=== PATIENT | female | born 1990 ===

== ENCOUNTER 2017-03-12 12:30 | Emergency (ER) | payer SELFPAY ==
[2017-03-12 12:31] VITALS: BMI 18.1
[2017-03-12 13:25] VITALS: O2SAT 100
[2017-03-12 14:09] LABS: SQUAMOUS EPITHIAL 30 /hpf (0-5); URINE BACTERIA RARE (<OCC); URINE BILIRUBIN NEGATIVE (NEGATIVE); URINE BLOOD NEGATIVE (NEGATIVE); URINE CLARITY Hazy (Clear); URINE COLOR Yellow (YELLOW); URINE GLUCOSE (UA) NORMAL (Normal); URINE LEUKOCYTE ESTERASE 2+ Leu/uL (Negative); URINE NITRATE NEGATIVE (NEGATIVE); URINE PROTEIN NEGATIVE (NEGATIVE); URINE UROBILINOGEN NORMAL mg/dL (0.2-1.0)
--- NOTE | 2017-03-12 15:32 | C.PDOC ---
Time Seen by Provider: 03/12/17 14:19 Chief Complaint (Nursing): Female Genitourinary Past Medical History Vital Signs: Last Vital Signs Temp 98.5 F 03/12/17 13:29 Pulse 80 03/12/17 13:29 Resp 16 03/12/17 13:29 BP 123/77 03/12/17 13:29 Pulse Ox 100 03/12/17 13:29 Family History: States: Unknown Family Hx - Social History Hx Alcohol Use: No Hx Substance Use: No - Immunization History Hx Tetanus Toxoid Vaccination: No Hx Influenza Vaccination: No Hx Pneumococcal Vaccination: No ED Course And Treatment O2 Sat by Pulse Oximetry: 100 Disposition Counseled Patient/Family Regarding: Diagnosis, Need For Followup - Disposition Disposition: HOME/ ROUTINE Disposition Time: 15:29 Condition: STABLE Additional Instructions: Follow up with your SKILLED NURSING FACILITY COUNSELOR. Instructions: Vaginitis (ED) Forms: [facility] ([place]ay[place] Islander), Gen Discharge Inst [place] Islander - POA Present On Arrival: None - Clinical Impression Clinical Impression: Vaginitis
--- NOTE | 2017-03-12 15:33 | C.PDOC ---
History Of Present Illness Cristy Sykes is a 26 year old female, with no past medical history, who presents to the emergency department complaining of lower abdominal pain associated with a vaginal discharge and some dysuria onset for x2 months. She reports itchiness and discomfort after menstrual period. Patient states she saw her OBGYN and was told have an US done and a pap test but she never followed through. Patient has no previous history of STDs and states she has 1 partner, no safe intercourse She denies any fever, or chills. No further medical complaints. PMD: None provided. Time Seen by Provider: 03/12/17 14:19 Chief Complaint (Nursing): Female Genitourinary History Per: Patient History/Exam Limitations: no limitations Onset/Duration Of Symptoms: Days (months) Current Symptoms Are (Timing): Still Present Quality Of Discomfort: "Pain" Associated Symptoms: Urinary Symptoms (some dysuria). denies: Fever Past Medical History Reviewed: Historical Data, Nursing Documentation, Vital Signs Vital Signs: Last Vital Signs Temp 97.6 F 03/12/17 15:49 Pulse 81 03/12/17 15:49 Resp 18 03/12/17 15:49 BP 113/73 03/12/17 15:49 Pulse Ox 100 03/12/17 16:20 - Medical History PMH: No Chronic Diseases Surgical History: No Surg Hx Family History: States: Unknown Family Hx - Social History Hx Alcohol Use: No Hx Substance Use: No - Immunization History Hx Tetanus Toxoid Vaccination: No Hx Influenza Vaccination: No Hx Pneumococcal Vaccination: No Review Of Systems Constitutional: Negative for: Fever, Chills Gastrointestinal: Positive for: Abdominal Pain (lower) Genitourinary: Positive for: Dysuria, Vaginal Discharge Physical Exam - Physical Exam Skin: Normal Color, Warm, Dry Head: Atraumatic Eye(s): bilateral: Normal Inspection Neck: Normal, Normal ROM, Supple Gastrointestinal/Abdominal: Normal Exam, Soft, No Tenderness Pelvic: Normal External Exam, Vaginal Discharge (white non clumpy), No Cervical Motion Tenderness, No Mass, No Other (pelvis tenderness) Extremity: Normal ROM, No Deformity Neurological/Psych: Oriented x3 ED Course And Treatment O2 Sat by Pulse Oximetry: 100 (RA) Pulse Ox Interpretation: Normal Medical Decision Making Medical Decision Making: Initial Impression: Vaginitis Initial Plan: --Flagyl 2,000 mg PO --Urinalysis --reevaluation Disposition - Disposition Additional Instructions: Follow up with your PHYSICAL INSTRUCTOR. Instructions: Vaginitis (ED) Forms: Gen Discharge Inst Mozambican, [facility] (Mozambican) - Clinical Impression Clinical Impression: Vaginitis - Scribe Statement Nas Jose Provider Attestation: All medical record entries made by the Scribe were at my direction and personally dictated by me. I have reviewed the chart and agree that the record accurately reflects my personal performance of the history, physical exam, medical decision making, and the department course for this patient. I have also personally directed, reviewed, and agree with the discharge instructions and disposition.
[2017-03-12 15:50] VITALS: BP 113/73; PULSE 81; RESP 18; TEMP 97.6
== END 2017-03-12 15:49 | disposition home or self-care (01) ==
LOC: C.ER 12:30
DX: N76.0 Acute vaginitis (principal)

== ENCOUNTER 2017-04-05 08:58 | Emergency (ER) | payer OTHER ==
[2017-04-05 09:08] VITALS: BMI 19.0
[2017-04-05 09:09] VITALS: TEMP 98.8
[2017-04-05 10:16] LABS: BASO % 0.3 % (0.0-2.0); EOS # 0.1 K/uL (0.0-0.7); EOS % 0.9 % (0.0-4.0); HEMOGLOBIN 14.4 g/dL (11.0-16.0); LYMPH # 1.9 K/uL (1.0-4.3); LYMPH % 25.5 % (20.0-40.0); MEAN CELL VOLUME 90.2 fL (81.0-99.0); MEAN CORPUSCULAR HEMOGLOBIN 31.9 pg (27.0-31.0); MEAN CORPUSCULAR HGB CONC 35.4 g/dL (33.0-37.0); MEAN PLATELET VOLUME 8.3 fL (7.2-11.7); MONO # 0.7 K/uL (0.0-0.8); MONO % 9.7 % (0.0-10.0); NEUT # 4.6 K/uL (1.8-7.0); NEUT % 63.6 % (50.0-75.0); RBC 4.51 Mil/uL (3.80-5.20); RED CELL DISTRIBUTION WIDTH 12.4 % (11.5-14.5); WHITE BLOOD COUNT 7.3 K/uL (4.8-10.8)
[2017-04-05 10:22] LABS: HCG,QUALITATIVE URINE POSITIVE (NEGATIVE)
[2017-04-05 10:28] LABS: ALB/GLOB RATIO 1.3 (1.0-2.1); ALBUMIN 4.2 g/dL (3.5-5.0); ALT/SGPT 15 U/L (9-52); AST/SGOT 18 U/L (14-36); BLOOD UREA NITROGEN 7 mg/dL (7-17); CALCIUM 9.4 mg/dl (8.6-10.4); GFR AFRICAN-AMERICAN > 60; GFR NON-AFRICAN AMERICAN > 60; SQUAMOUS EPITHIAL 4 /hpf (0-5); URINE BACTERIA RARE (<OCC); URINE BILIRUBIN NEGATIVE (NEGATIVE); URINE BLOOD NEGATIVE (NEGATIVE); URINE CLARITY Hazy (Clear); URINE COLOR Yellow (YELLOW); URINE GLUCOSE (UA) NORMAL (Normal); URINE LEUKOCYTE ESTERASE 2+ Leu/uL (Negative); URINE NITRATE NEGATIVE (NEGATIVE); URINE PROTEIN NEGATIVE (NEGATIVE); URINE UROBILINOGEN NORMAL mg/dL (0.2-1.0)
--- NOTE | 2017-04-05 11:09 | C.PDOC ---
History Of Present Illness 26 year old female, 5 weeks , presents to ED for evaluation of pelvic pain and yellow vaginal discharge for the past 7 days. Contrary to triage, pt does not complain of vaginal spotting/bleeding. Otherwise, denies n/v/d, constipation, back pain, urinary symptoms, or fever. Chief Complaint (Nursing): Abdominal Pain History Per: Patient History/Exam Limitations: no limitations Onset/Duration Of Symptoms: Days Current Symptoms Are (Timing): Still Present Location Of Pain/Discomfort: Suprapubic Radiation Of Pain To:: None Quality Of Discomfort: "Pain" Associated Symptoms: denies: Loss Of Appetite, Back Pain, Chest Pain, Constipation, Urinary Symptoms Exacerbating Factors: None Alleviating Factors: None Recent travel outside of the [place]: No Additional History Per: Patient Abnormal Vaginal Bleeding: No Past Medical History Reviewed: Historical Data, Nursing Documentation, Vital Signs Vital Signs: Last Vital Signs Temp 98.8 F 04/05/17 09:08 Pulse 92 H 04/05/17 15:07 Resp 16 04/05/17 15:07 BP 108/72 04/05/17 15:07 Pulse Ox 100 04/05/17 15:07 Family History: States: Unknown Family Hx - Social History Hx Alcohol Use: No Hx Substance Use: No - Immunization History Hx Tetanus Toxoid Vaccination: No Hx Influenza Vaccination: No Hx Pneumococcal Vaccination: No Review Of Systems Except As Marked, All Systems Reviewed And Found Negative. Constitutional: Negative for: Fever, Chills Gastrointestinal: Negative for: Nausea, Vomiting, Diarrhea, Constipation Genitourinary: Positive for: Vaginal Discharge, Pelvic Pain. Negative for: Dysuria, Frequency, Hematuria, Vaginal Bleeding Musculoskeletal: Negative for: Back Pain Physical Exam - Physical Exam Appears: Non-toxic, No Acute Distress Skin: Normal Color, Warm, Dry Head: Atraumatic, Normacephalic Eye(s): bilateral: Normal Inspection, EOMI Nose: Normal Oral Mucosa: Moist, No Drooling Neck: Normal ROM, Supple Cardiovascular: Rhythm Regular, No Murmur Respiratory: Normal Breath Sounds, No Rales, No Rhonchi, No Wheezing Gastrointestinal/Abdominal: Soft, No Tenderness, No Guarding, No Rebound Back: No CVA Tenderness Pelvic: No Vaginal Bleeding, Vaginal Discharge (yellow cottage cheese) Extremity: Bilateral: Atraumatic, Normal ROM Neurological/Psych: Oriented x3, Normal Speech ED Course And Treatment - Laboratory Results Result Diagrams: 04/05/17 10:11 04/05/17 10:11 O2 Sat by Pulse Oximetry: 99 (RA) Pulse Ox Interpretation: Normal - CT Scan/US Preg 1st trimester US Other Rad Studies (CT/US): Read By Radiologist, Radiology Report Reviewed CT/US Interpretation: HISTORY: , spotting. COMPARISON: None available. TECHNIQUE: Transabdominal and endovaginal ultrasound examination of the pelvis were obtained. FINDINGS: UTERUS: Measures 5.6 x 4.3 x 4.9 cm. Normal in size and appearance. No fibroid or other mass lesion seen. ENDOMETRIUM: there is cystic structure in the endometrium likely represent air early gestational sac. There is yolk sac noted in the gestational sac. No definite pole noted in this study. There is presumed gestational sac measures 0.76 x 0.46 x 1.09 centimeter. The yolk sac measures 0.18 centimeter. CERVIX: No cervical abnormality identified. RIGHT OVARY: Measures 2.02 x 1.9 x 1.98 cm. No solid mass. Normal flow. LEFT OVARY: Measures 3.3 x 2.04 x 2.92 cm. No solid mass. Normal flow. There is complex cyst seen at the left ovary may represent corpus luteum cyst measures 2.3 x 2 x 2.2 centimeter. FREE FLUID : Small amount of free fluid noted in the pelvis. OTHER FINDINGS: None. IMPRESSION: Findings suggestive of an early intrauterine gestation. Small gestational sac noted in the endometrium contains yolk sac. Interval close follow-up reassessment by ultrasound is suggested. Left ovary corpus luteum cyst. Progress Note: Blood work, urinalysis, pelvis ultrasound ordered and reviewed. On re-eval, patient is resting comfortably, abdomen remains soft, and patient is tolerating PO. Case was d/w OBGYN animal nutrition consultant who instructed to treat patient with Rocephin/Zithromax, give Rx for Cleocin vaginal and Miconazole vaginal. Patient is being discharged home, with instructions to follow up with PMD in 1-2 days for further evaluation. Return to ED if symptoms persist or worsen. Disposition - Disposition Referrals: [facility] [Outside] [facility] [Outside] [facility] [Outside] Disposition: HOME/ ROUTINE Disposition Time: 14:03 Condition: STABLE Additional Instructions: Follow up with PMD within 1-2 days. Return to ED if feel worse. Prescriptions: Clindamycin Phosphate [Cleocin] 100 mg VG DAILY #3 supp.vag Miconazole 2% Vaginal [Monistat 7 Vaginal Cream] 1 ea VG QPM 7 Days #7 appl Vit Calc,Iron,Folic [ Vitamins] 1 each PO DAILY #30 tablet Ondansetron ODT [Zofran ODT] 4 mg PO .Q4-6H PRN #20 odt PRN Reason: Nausea/Vomiting Instructions: Vaginitis (ED) Forms: [facility] (Slovenian), Gen Discharge Inst Jordanian Print Language: GUINEAN - Clinical Impression Clinical Impression: Vaginitis during in first trimester - PA / RN DERMATOLOGY / Resident Statement MD/DO has reviewed & agrees with the documentation as recorded. - Scribe Statement The provider has reviewed the documentation as recorded by the Shankaribcon Knight All medical record entries made by the Shankaribe were at my direction and personally dictated by me. I have reviewed the chart and agree that the record accurately reflects my personal performance of the history, physical exam, medical decision making, and the department course for this patient. I have also personally directed, reviewed, and agree with the discharge instructions and disposition.
--- NOTE | 2017-04-05 12:12 | US ---
HISTORY: , spotting COMPARISON: None available. TECHNIQUE: Transabdominal and endovaginal ultrasound examination of the pelvis were obtained. FINDINGS: UTERUS: Measures 5.6 x 4.3 x 4.9 cm. Normal in size and appearance. No fibroid or other mass lesion seen. ENDOMETRIUM: there is cystic structure in the endometrium likely represent air early gestational sac. There is yolk sac noted in the gestational sac. No definite pole noted in this study. There is presumed gestational sac measures 0.76 x 0.46 x 1.09 centimeter. The yolk sac measures 0.18 centimeter. CERVIX: No cervical abnormality identified. RIGHT OVARY: Measures 2.02 x 1.9 x 1.98 cm. No solid mass. Normal flow. LEFT OVARY: Measures 3.3 x 2.04 x 2.92 cm. No solid mass. Normal flow. There is complex cyst seen at the left ovary may represent corpus luteum cyst measures 2.3 x 2 x 2.2 centimeter. FREE FLUID: Small amount of free fluid noted in the pelvis. OTHER FINDINGS: None. IMPRESSION: Findings suggestive of an early intrauterine gestation. Small gestational sac noted in the endometrium contains yolk sac. Interval close follow-up reassessment by ultrasound is suggested. Left ovary corpus luteum cyst.
[2017-04-05] MEDS ORDERED: cefTRIAXone (Rocephin) 250 mg Inj IM STA (14:02)
[2017-04-05] MEDS ORDERED: cefTRIAXone 250 MG, Lidocaine Hydrochloride 1% 1 ML IM STA (14:10)
[2017-04-05 15:07] VITALS: BP 108/72; PULSE 92; RESP 16
[2017-04-05 16:01] VITALS: O2SAT 99
== END 2017-04-05 15:08 | disposition home or self-care (01) ==
LOC: C.ER 08:58
DX: O23.591 Infection of other part of genital tract in pregnancy, first trimester (principal); Z3A.01 Less than 8 weeks gestation of pregnancy
CPT/HCPCS: 76805; 76817; 80053; 81001; 84702; 84703; 85025; 86850; 86900; 87491; 87591; 96372; 99285; J0696

== ENCOUNTER 2017-04-18 12:58 | Emergency (ER) | payer SELFPAY ==
[2017-04-18 13:37] VITALS: BMI 18.6
--- NOTE | 2017-04-18 14:22 | C.PDOC ---
History Of Present Illness VIA TRANS L PELVIC PAIN SINCE YEST. SEEN 03/12 AND 04/05, +IUP ON US ON 04/05. PS COMPLETED VAGINITIS RX. NO UTI, FEVER, NV. PS WAS NOT AWARE NEEDED OBGYN FU FROM PRIOR DC EXAM NAD ABD SOFT NT ND NO R/G REMAINDER NEG Time Seen by Provider: 04/18/17 13:53 Chief Complaint (Nursing): Abdominal Pain History Per: Biodiesel Production Technician Onset/Duration Of Symptoms: Days Current Symptoms Are (Timing): Still Present Severity: Moderate Past Medical History Reviewed: Historical Data, Nursing Documentation, Vital Signs Vital Signs: Last Vital Signs Temp 98.3 F 04/18/17 15:03 Pulse 80 04/18/17 15:03 Resp 20 04/18/17 15:03 BP 96/62 L 04/18/17 15:03 Pulse Ox 100 04/18/17 15:03 - Medical History PMH: No Chronic Diseases Family History: States: Unknown Family Hx - Social History Hx Alcohol Use: No Hx Substance Use: No - Immunization History Hx Tetanus Toxoid Vaccination: No Hx Influenza Vaccination: No Hx Pneumococcal Vaccination: No Review Of Systems Except As Marked, All Systems Reviewed And Found Negative. Constitutional: Negative for: Fever, Chills Gastrointestinal: Negative for: Nausea, Vomiting Genitourinary: Negative for: Dysuria, Hematuria Musculoskeletal: Positive for: Other (left sided pelvic pain) Physical Exam - Physical Exam Appears: Non-toxic, No Acute Distress Skin: Normal Color, Warm Head: Atraumatic, Normacephalic Eye(s): bilateral: Normal Inspection Gastrointestinal/Abdominal: Normal Exam, Soft, No Tenderness, No Distention, No Guarding, No Rebound Neurological/Psych: Oriented x3, Normal Speech, Normal Motor, Normal Sensation ED Course And Treatment - Laboratory Results Result Diagrams: 04/18/17 15:13 04/18/17 15:13 Medical Decision Making Medical Decision Making: Plan --Labs --UA --HCG Disposition Counseled Patient/Family Regarding: Studies Performed, Diagnosis, Need For Followup - Disposition Referrals: [facility] [Outside] [facility] [Outside] Disposition: HOME/ ROUTINE Disposition Time: 16:54 Condition: IMPROVED Additional Instructions: TOME TYLENOL SEGN LO INDIQUE PARA EL DOLOR. SEGUIR CON OBGYN Instructions: Round Ligament Pain Forms: [facility] [employer] (Albanian) Print Language: THAI - Clinical Impression Clinical Impression: Round ligament pain, - Scribe Statement The provider has reviewed the documentation as recorded by the Suzanne Reilly Provider Attestation: All medical record entries made by the Shankaribcon were at my direction and personally dictated by me. I have reviewed the chart and agree that the record accurately reflects my personal performance of the history, physical exam, medical decision making, and the department course for this patient. I have also personally directed, reviewed, and agree with the discharge instructions and disposition.
[2017-04-18 15:04] VITALS: RESP 20; O2SAT 100
[2017-04-18 15:19] LABS: BASO % 0.4 % (0.0-2.0); EOS % 0.4 % (0.0-4.0); HEMOGLOBIN 13.5 g/dL (11.0-16.0); LYMPH # 1.8 K/uL (1.0-4.3); LYMPH % 21.6 % (20.0-40.0); MEAN CELL VOLUME 89.7 fL (81.0-99.0); MEAN CORPUSCULAR HEMOGLOBIN 31.4 pg (27.0-31.0); MEAN PLATELET VOLUME 8.5 fL (7.2-11.7); MONO # 0.8 K/uL (0.0-0.8); MONO % 8.9 % (0.0-10.0); NEUT # 5.9 K/uL (1.8-7.0); NEUT % 68.7 % (50.0-75.0); RBC 4.31 Mil/uL (3.80-5.20); RED CELL DISTRIBUTION WIDTH 12.4 % (11.5-14.5); WHITE BLOOD COUNT 8.6 K/uL (4.8-10.8)
[2017-04-18 15:31] LABS: SQUAMOUS EPITHIAL 3 /hpf (0-5); URINE BILIRUBIN NEGATIVE (NEGATIVE); URINE BLOOD NEGATIVE (NEGATIVE); URINE CLARITY Clear (Clear); URINE COLOR Yellow (YELLOW); URINE GLUCOSE (UA) NORMAL (Normal); URINE LEUKOCYTE ESTERASE NEG Leu/uL (Negative); URINE NITRATE NEGATIVE (NEGATIVE); URINE PROTEIN NEGATIVE (NEGATIVE); URINE UROBILINOGEN NORMAL mg/dL (0.2-1.0)
[2017-04-18 15:35] LABS: BLOOD UREA NITROGEN 6 mg/dL (7-17); GFR AFRICAN-AMERICAN > 60; GFR NON-AFRICAN AMERICAN > 60
[2017-04-18 17:07] VITALS: BP 96/61; PULSE 87; TEMP 98.4
== END 2017-04-18 17:06 | disposition home or self-care (01) ==
LOC: C.ER 12:58
DX: O26.899 Other specified pregnancy related conditions, unspecified trimester (principal); R10.2 Pelvic and perineal pain; Z3A.00 Weeks of gestation of pregnancy not specified